=== PATIENT | male | born 1955 | race Caucasian/White ===

== ENCOUNTER 2019-11-07 12:22 | Inpatient (IN) | payer MEDICARE, OTHER ==
[~2019-11-07] VITALS: Ht 175.3 cm; Wt 78.9 kg
[2019-11-07] MEDS ORDERED: QUET100T PO (14:58)
[2019-11-07] MEDS ORDERED: TRAZ-257 PO (14:58)
[2019-11-07] MEDS ORDERED: VALP250C48 PO (14:58)
[2019-11-07 15:00] VITALS: BP 101/50
[2019-11-07 16:06] VITALS: BP 106/63
[2019-11-07 16:09] VITALS: BP 106/63
[2019-11-08 01:50] VITALS: BP 112/68
[2019-11-08 08:00] VITALS: BP 115/78
[2019-11-08] MEDS ORDERED: ACETAMINOPHEN 325 MG TABLET PO PRN (08:15)
[2019-11-08] MEDS ORDERED: MAG HYDROX/AL HYDROX/SIMETH ES 30 ML SUSPENSION UDCUP PO PRN (08:15)
[2019-11-08] MEDS ORDERED: ALBUTEROL SULFATE HFA 90 MCG/PUFF 8 GM INHALER IH PRN (08:15)
[2019-11-08] MEDS ORDERED: ONDANSETRON HCL 4 MG TABLET PO PRN (08:15)
[2019-11-08] MEDS ORDERED: IBUPROFEN 400 MG TABLET PO PRN (08:15)
[2019-11-08] MEDS ORDERED: MAGNESIUM HYDROXIDE SUSPENSION 30 ML UDCUP PO PRN (08:15)
[2019-11-08] MEDS ORDERED: LOPERAMIDE HCL 2 MG CAPSULE PO PRN (08:15)
[2019-11-08] MEDS ORDERED: PETROLATUM,WHITE 28 GM JELLY TP PRN (08:15)
[2019-11-08] MEDS ORDERED: GuaiFENesin/D-METHORPHAN [SUGAR-FREE] 200-20MG/10 ML SYRUP UDCUP PO PRN (08:15)
[2019-11-08] MEDS ORDERED: CloNIDine HCL 0.1 MG TABLET PO PRN (08:15)
[2019-11-08] MEDS ORDERED: DOCUSATE SODIUM 100 MG CAPSULE PO PRN (08:15)
[2019-11-08 08:23] LABS: BASOPHILS % (AUTO) 0.4 % (0.0-2.0); EOSINOPHILS % (AUTO) 2.5 % (1.0-6.0); HEMATOCRIT 42.3 % (41-53); HEMOGLOBIN 14.6 g/dL (13.5-17.5); LYMPHOCYTES # (AUTO) 1.1 K/uL (1.0-4.8); LYMPHOCYTES % (AUTO) 16.1 % (22.0-44.0); MEAN CORPUSCULAR HEMOGLOBIN 31.6 pg (26.0-34.0); MEAN CORPUSCULAR HGB CONC 34.6 G/dL (31.0-37.0); MEAN CORPUSCULAR VOLUME 91 fL (80-100); MONOCYTES # (AUTO) 0.6 K/uL (0.1-1.0); MONOCYTES % (AUTO) 9.1 % (2.0-9.0); NEUTROPHILS % (AUTO) 71.9 % (40.0-70.0); PLATELET COUNT (AUTO) 327 K/uL (150-450); RED BLOOD CELL COUNT(AUTO) 4.63 MIL/uL (4.50-5.90)
[2019-11-08] MEDS: HALOPERIDOL 5 MG TABLET PO PRN (09:01)
[2019-11-08] MEDS: LORazepam 2 MG TABLET PO PRN (09:02)
[2019-11-08 09:07] LABS: ALANINE AMINOTRANSFERASE 26 U/L (12-78); ALKALINE PHOSPHATASE 55 U/L (46-116); ANION GAP 9 mmol/L (8-16); ASPARTATE AMINOTRANSFERASE 24 U/L (15-37); BILIRUBIN,TOTAL 0.2 mg/dL (0.1-1.0); CALCIUM, TOTAL 9.1 mg/dL (8.8-10.5); CARBON DIOXIDE 25 mmol/L (22-29); CHLORIDE 104 mmol/L (98-107); CHOL/HDL RATIO 4.1 (4.2-7.3); CHOLESTEROL 145 mg/dL (131-200); CREATININE 0.82 mg/dL (0.60-1.30); FREE T4 (FREE THYROXINE) 1.19 ng/dL (0.76-1.46); GLOMERULAR FILTR. RATE CALC > 60 mL/min (>60); GLUCOSE,RANDOM 88 mg/dL (70-110); HDL CHOLESTEROL 35 mg/dL (40-60); LDL CHOL (CALC.) 93 mg/dL (0-130); POTASSIUM 4.2 mmol/L (3.5-5.1); SODIUM SERUM 138 mmol/L (136-145); THYROID STIMULATING HORMONE 0.51 uIU/mL (0.36-3.74); TOTAL PROTEIN, SERUM 7.1 g/dL (6.4-8.2); TRIGLYCERIDES 87 mg/dL (15-150); UREA NITROGEN, BLOOD 16 mg/dL (7-18)
[2019-11-08] MEDS: QUEtiapine FUMARATE 200 MG TABLET PO SCH ×2 (12:52→20:21)
[2019-11-08] MEDS: DIVALPROEX SODIUM 500 MG DR TABLET PO SCH ×2 (12:52→20:21)
[2019-11-09 04:50] VITALS: BP 128/83
[2019-11-09] MEDS: DIVALPROEX SODIUM 500 MG DR TABLET PO SCH ×2 (08:36→20:10)
[2019-11-09] MEDS: QUEtiapine FUMARATE 200 MG TABLET PO SCH ×2 (08:36→20:10)
[2019-11-09 08:55] VITALS: BP 126/81
[2019-11-09 16:04] VITALS: BP 124/80
[2019-11-09] MEDS: LORazepam 2 MG TABLET PO PRN (20:10)
[2019-11-10 04:05] VITALS: BP 114/64
[2019-11-10 08:03] VITALS: BP 119/70
[2019-11-10] MEDS: DIVALPROEX SODIUM 500 MG DR TABLET PO SCH ×2 (08:34→20:53)
[2019-11-10] MEDS: QUEtiapine FUMARATE 200 MG TABLET PO SCH ×2 (08:34→20:53)
[2019-11-10] MEDS: CEPHALEXIN MONOHYDRATE 500 MG CAPSULE PO SCH ×3 (08:34→16:50)
[2019-11-10] MEDS: NEOMYCIN/BACITRACIN/POLYMYXIN B 30 GM OINTMENT TP SCH (08:35)
[2019-11-10 16:03] VITALS: BP 138/79
[2019-11-10] MEDS: ZOLPIDEM TARTRATE 10 MG TABLET PO PRN (20:53)
[2019-11-11 03:47] VITALS: BP 122/67
[2019-11-11] MEDS: CEPHALEXIN MONOHYDRATE 500 MG CAPSULE PO SCH ×3 (08:31→16:13)
[2019-11-11] MEDS: QUEtiapine FUMARATE 200 MG TABLET PO SCH ×2 (08:31→19:33)
[2019-11-11] MEDS: DIVALPROEX SODIUM 500 MG DR TABLET PO SCH ×2 (08:31→19:33)
[2019-11-11] MEDS: NEOMYCIN/BACITRACIN/POLYMYXIN B 30 GM OINTMENT TP SCH (08:31)
[2019-11-11] MEDS: LORazepam 2 MG TABLET PO PRN (08:32)
[2019-11-11 08:45] VITALS: BP 103/64
[2019-11-11] MEDS: HALOPERIDOL 5 MG TABLET PO PRN (16:31)
[2019-11-11 16:44] VITALS: BP 102/67
[2019-11-12 02:40] VITALS: BP 112/70
[2019-11-12 08:17] VITALS: BP 105/70
[2019-11-12] MEDS: NEOMYCIN/BACITRACIN/POLYMYXIN B 30 GM OINTMENT TP SCH (08:30)
[2019-11-12] MEDS: CEPHALEXIN MONOHYDRATE 500 MG CAPSULE PO SCH ×3 (08:30→16:17)
[2019-11-12] MEDS: DIVALPROEX SODIUM 500 MG DR TABLET PO SCH ×2 (08:30→20:39)
[2019-11-12] MEDS: QUEtiapine FUMARATE 200 MG TABLET PO SCH ×2 (08:37→20:39)
[2019-11-12 09:54] LABS: APPEARANCE,URINE CLEAR (CLEAR); BILIRUBIN,URINE NEGATIVE (NEGATIVE); GLUCOSE, URINE (UA) NEGATIVE (NEGATIVE); KETONES,URINE NEGATIVE (NEGATIVE); LEUKOCYTE ESTERASE ,URINE NEGATIVE (NEGATIVE); NITRATE,URINE NEGATIVE (NEGATIVE); OCCULT BLOOD,URINE NEGATIVE (NEGATIVE); PH,URINE 6.5 (5.0-8.0); PROTEIN,URINE NEGATIVE (NEGATIVE); UROBILINOGEN,URINE 0.2 mg/dL (<=1.0)
[2019-11-12 10:02] LABS: BARBITURATE SCREEN, URINE NEGATIVE (NEGATIVE); BENZODIAZEPINES SCREEN,URINE NEGATIVE (NEGATIVE); CANNABINOID SCREEN,URINE NEGATIVE (NEGATIVE); COCAINE SCREEN,URINE NEGATIVE (NEGATIVE); METHADONE SCREEN, URINE NEGATIVE (NEGATIVE); OPIATE SCREEN,URINE NEGATIVE (NEGATIVE)
[2019-11-12 10:15] LABS: AMPHET/METH SCREEN,URINE NEGATIVE (NEGATIVE)
[2019-11-12 10:16] LABS: PHENCYCLIDINE SCREEN,URINE NEGATIVE (NEGATIVE)
[2019-11-12 16:04] VITALS: BP 109/76
[2019-11-13 04:28] VITALS: BP 127/72
[2019-11-13 08:04] VITALS: BP 118/73
[2019-11-13] MEDS: DIVALPROEX SODIUM 500 MG DR TABLET PO SCH ×2 (08:13→20:40)
[2019-11-13] MEDS: QUEtiapine FUMARATE 200 MG TABLET PO SCH ×2 (08:13→20:40)
[2019-11-13] MEDS: CEPHALEXIN MONOHYDRATE 500 MG CAPSULE PO SCH ×3 (08:13→16:22)
[2019-11-13] MEDS: MULTIVITAMINS WITH MINERALS, THERAPEUTIC TABLET PO SCH (08:13)
[2019-11-13] MEDS: NEOMYCIN/BACITRACIN/POLYMYXIN B 30 GM OINTMENT TP SCH (11:14)
[2019-11-13 16:06] VITALS: BP 100/66
[2019-11-13] MEDS: LORazepam 2 MG TABLET PO PRN (16:22)
[2019-11-13] MEDS: ZOLPIDEM TARTRATE 10 MG TABLET PO PRN (20:40)
[2019-11-14 01:32] VITALS: BP 105/64
[2019-11-14 08:02] VITALS: BP 119/71
[2019-11-14] MEDS: MULTIVITAMINS WITH MINERALS, THERAPEUTIC TABLET PO SCH (08:45)
[2019-11-14] MEDS: CEPHALEXIN MONOHYDRATE 500 MG CAPSULE PO SCH ×3 (08:45→16:39)
[2019-11-14] MEDS: DIVALPROEX SODIUM 500 MG DR TABLET PO SCH ×2 (08:46→20:28)
[2019-11-14] MEDS: QUEtiapine FUMARATE 200 MG TABLET PO SCH ×2 (08:46→20:28)
[2019-11-14] MEDS: NEOMYCIN/BACITRACIN/POLYMYXIN B 30 GM OINTMENT TP SCH (08:46)
[2019-11-14 16:22] VITALS: BP 136/94
[2019-11-14] MEDS: LORazepam 2 MG TABLET PO PRN (16:39)
[2019-11-14] MEDS: ZOLPIDEM TARTRATE 10 MG TABLET PO PRN (20:28)
[2019-11-15 00:41] VITALS: BP 109/67
[2019-11-15 08:19] VITALS: BP 113/68
[2019-11-15] MEDS: DIVALPROEX SODIUM 500 MG DR TABLET PO SCH (08:55)
[2019-11-15] MEDS: QUEtiapine FUMARATE 200 MG TABLET PO SCH (08:55)
[2019-11-15] MEDS: CEPHALEXIN MONOHYDRATE 500 MG CAPSULE PO SCH (08:55)
[2019-11-15] MEDS: MULTIVITAMINS WITH MINERALS, THERAPEUTIC TABLET PO SCH (08:55)
[2019-11-15] MEDS: NEOMYCIN/BACITRACIN/POLYMYXIN B 30 GM OINTMENT TP SCH (10:59)
[2019-11-15 16:10] VITALS: BP 119/83
[2019-11-15] MEDS: LORazepam 2 MG TABLET PO PRN (16:45)
[2019-11-15] MEDS: DIVALPROEX SODIUM 250 MG DR TABLET PO SCH (20:22)
[2019-11-15] MEDS: ZOLPIDEM TARTRATE 10 MG TABLET PO PRN (20:23)
[2019-11-15] MEDS: QUEtiapine FUMARATE 300 MG TABLET PO SCH (20:23)
[2019-11-16 04:20] VITALS: BP 112/68
[2019-11-16] MEDS ORDERED: LORazepam 2 MG/ML VIAL IM ONE (05:15)
[2019-11-16] MEDS ORDERED: HALOPERIDOL LACTATE 5 MG/ML VIAL IM ONE (05:15)
[2019-11-16] MEDS ORDERED: DiphenhydrAMINE HCL 50 MG/ML VIAL IM ONE (05:15)
[2019-11-16 08:19] VITALS: BP 118/69
[2019-11-16] MEDS: NEOMYCIN/BACITRACIN/POLYMYXIN B 30 GM OINTMENT TP SCH (08:46)
[2019-11-16] MEDS: QUEtiapine FUMARATE 300 MG TABLET PO SCH ×2 (08:46→20:31)
[2019-11-16] MEDS: DIVALPROEX SODIUM 250 MG DR TABLET PO SCH ×2 (08:46→20:31)
[2019-11-16] MEDS: MULTIVITAMINS WITH MINERALS, THERAPEUTIC TABLET PO SCH (08:48)
[2019-11-16 16:04] VITALS: BP 108/76
[2019-11-16] MEDS: LORazepam 2 MG TABLET PO PRN (16:32)
[2019-11-17 00:14] VITALS: BP 114/78
[2019-11-17 08:05] VITALS: BP 138/85
[2019-11-17] MEDS: DIVALPROEX SODIUM 250 MG DR TABLET PO SCH ×2 (09:02→20:54)
[2019-11-17] MEDS: QUEtiapine FUMARATE 300 MG TABLET PO SCH ×2 (09:03→20:54)
[2019-11-17] MEDS: MULTIVITAMINS WITH MINERALS, THERAPEUTIC TABLET PO SCH (09:03)
[2019-11-17] MEDS: NEOMYCIN/BACITRACIN/POLYMYXIN B 30 GM OINTMENT TP SCH (09:04)
[2019-11-17 16:16] VITALS: BP 109/71
[2019-11-18 02:56] VITALS: BP 117/70
[2019-11-18 08:06] VITALS: BP 132/89
[2019-11-18] MEDS: MULTIVITAMINS WITH MINERALS, THERAPEUTIC TABLET PO SCH (08:10)
[2019-11-18] MEDS: DIVALPROEX SODIUM 250 MG DR TABLET PO SCH ×2 (08:10→20:18)
[2019-11-18] MEDS: NICOTINE 14 MG/24 HOUR PATCH TD PRN (08:10)
[2019-11-18] MEDS: NEOMYCIN/BACITRACIN/POLYMYXIN B 30 GM OINTMENT TP SCH (08:11)
[2019-11-18] MEDS: QUEtiapine FUMARATE 300 MG TABLET PO SCH ×2 (08:11→20:18)
[2019-11-18 16:14] VITALS: BP 115/72
[2019-11-18] MEDS: LORazepam 2 MG TABLET PO PRN (16:45)
[2019-11-19 03:54] VITALS: BP 132/83
[2019-11-19] MEDS: DIVALPROEX SODIUM 250 MG DR TABLET PO SCH ×2 (08:43→20:13)
[2019-11-19] MEDS: LORazepam 2 MG TABLET PO PRN (08:43)
[2019-11-19] MEDS: MULTIVITAMINS WITH MINERALS, THERAPEUTIC TABLET PO SCH (08:43)
[2019-11-19] MEDS: QUEtiapine FUMARATE 300 MG TABLET PO SCH ×2 (08:43→20:13)
[2019-11-19] MEDS: NEOMYCIN/BACITRACIN/POLYMYXIN B 30 GM OINTMENT TP SCH (08:44)
[2019-11-19] MEDS: NICOTINE 14 MG/24 HOUR PATCH TD PRN (08:46)
[2019-11-19 09:29] VITALS: BP 109/65
[2019-11-19 16:19] VITALS: BP 119/90
[2019-11-20] MEDS: LORazepam 2 MG TABLET PO PRN ×2 (00:20→20:38)
[2019-11-20] MEDS: ZOLPIDEM TARTRATE 10 MG TABLET PO PRN ×2 (00:21→20:38)
[2019-11-20 00:30] VITALS: BP 123/82
[2019-11-20 08:43] VITALS: BP 126/78
[2019-11-20] MEDS: MULTIVITAMINS WITH MINERALS, THERAPEUTIC TABLET PO SCH (08:57)
[2019-11-20] MEDS: DIVALPROEX SODIUM 250 MG DR TABLET PO SCH ×2 (08:57→20:29)
[2019-11-20] MEDS: QUEtiapine FUMARATE 300 MG TABLET PO SCH ×2 (08:57→20:29)
[2019-11-20] MEDS: NEOMYCIN/BACITRACIN/POLYMYXIN B 30 GM OINTMENT TP SCH (08:58)
[2019-11-20 16:16] VITALS: BP 102/60
[2019-11-20 20:30] VITALS: BP 111/69
[2019-11-21 06:25] VITALS: BP 119/52
[2019-11-21] MEDS: NEOMYCIN/BACITRACIN/POLYMYXIN B 30 GM OINTMENT TP SCH (08:44)
[2019-11-21] MEDS: QUEtiapine FUMARATE 300 MG TABLET PO SCH (08:45)
[2019-11-21] MEDS: DIVALPROEX SODIUM 250 MG DR TABLET PO SCH (08:45)
[2019-11-21] MEDS: MULTIVITAMINS WITH MINERALS, THERAPEUTIC TABLET PO SCH (08:45)
[2019-11-21 08:48] VITALS: BP 116/75
[2019-11-21] MEDS: NICOTINE 14 MG/24 HOUR PATCH TD PRN (09:38)
[2019-11-21] MEDS ORDERED: QUET300T2 PO (15:52)
[2019-11-21] MEDS ORDERED: DIVA-111 PO (15:53)
== END 2019-11-21 17:15 | disposition home or self-care (01) | DRG 885 ==
LOC: B3A 14:33
DX: F25.0 Schizoaffective disorder, bipolar type (principal); F10.10 Alcohol abuse, uncomplicated; J30.2 Other seasonal allergic rhinitis; K21.9 Gastro-esophageal reflux disease without esophagitis; Z91.5 Personal history of self-harm; F19.10 Other psychoactive substance abuse, uncomplicated
CPT/HCPCS: 80307; 84439; 84443; 87081; J1200; J1630; J2060